=== PATIENT | male | born 1960 | race Caucasian/White ===

== ENCOUNTER 2018-11-09 14:40 | Observation (INO) | payer BC, OTHER ==
[2018-11-09] MEDS ORDERED: NORMAL SALINE 1000 ML 1,000 ML IV PRN (14:51)
[2018-11-09 15:50] LABS: ALANINE AMINOTRANSFERASE 30 U/L (21-72); ALBUMIN 4.6 g/dL (3.5-5.0); ALKALINE PHOSPHATASE 74 U/L (38-126); ANION GAP 14 (5-19); ASPARTATE AMINO TRANSFERASE 20 U/L (17-59); BILIRUBIN,DIRECT 0.3 mg/dL (0.0-0.4); BILIRUBIN,TOTAL 1.3 mg/dL (0.2-1.3); BLOOD UREA NITROGEN 17 mg/dL (7-20); CALCIUM 10.7 mg/dL (8.4-10.2); CARBON DIOXIDE 26 mmol/L (22-30); CHLORIDE 103 mmol/L (98-107); CREATINE KINASE 116 U/L (55-170); GLUCOSE 108 mg/dL (75-110); POTASSIUM 4.4 mmol/L (3.6-5.0); TOTAL PROTEIN 7.8 g/dL (6.3-8.2)
[2018-11-09 15:56] LABS: HEMATOCRIT 47.9 % (37.9-51.0); MEAN CORPUSCULAR HEMOGLOBIN 32.2 pg (27.0-33.4); MEAN CORPUSCULAR HGB CONC 35.5 g/dL (32.0-36.0); MEAN CORPUSCULAR VOLUME 91 fl (80-97); PLATELET COUNT 268 10^3/uL (150-450); RED BLOOD COUNT 5.28 10^6/uL (4.35-5.55); RED CELL DISTRIBUTION WIDTH 13.3 % (11.5-14.0); WHITE BLOOD COUNT 12.8 10^3/uL (4.0-10.5)
[2018-11-09 16:02] LABS: CREATINE KINASE MB 1.41 ng/mL (<4.55)
[2018-11-09 16:05] LABS: TROPONIN I < 0.012 ng/mL
--- NOTE | 2018-11-09 16:08 | EKG REPORT ---
SEVERITY:- ABNORMAL ECG - SINUS RHYTHM PROBABLE LEFT ATRIAL ABNORMALITY RIGHT BUNDLE BRANCH BLOCK +LPFB : Confirmed by: Av Alfred MD 09-Nov-2018 16:07:43
[2018-11-09 16:20] LABS: ABSOLUTE LYMPHOCYTES# (MANUAL) 0.4 10^3/uL (0.5-4.7); ABSOLUTE MONOCYTES # (MANUAL) 0.3 10^3/uL (0.1-1.4); ABSOLUTE NEUTROPHILS# (MANUAL) 12.2 10^3/uL (1.7-8.2); BASOPHILS % (MANUAL) 0 % (0-2); EOSINOPHILS % (MANUAL) 0 % (0-6); LYMPHOCYTES % (MANUAL) 3 % (13-45); MONOCYTES % (MANUAL) 2 % (3-13); PLATELET CLUMPS PRESENT; PLATELET COMMENT ADEQUATE; RBC MORPHOLOGY COMMENT NORMO-CYTIC/CHROMIC; SEGMENTED NEUTROPHILS % (MAN) 95 % (42-78); TOTAL CELLS COUNTED 100
[2018-11-09] MEDS ORDERED: NORMAL SALINE 1000 ML 1,000 ML IV ONE ×2 (16:20→17:31)
[2018-11-09] MEDS ORDERED: ONDANSETRON HCL INJ/PF 4 MG/2 ML SDV IV ONE (16:26)
[2018-11-09] MEDS ORDERED: KETOROLAC TROMETHAMINE INJ/PF 30 MG/1 ML SDV IV ONE (16:44)
[2018-11-09] MEDS ORDERED: ACETAMINOPHEN 325 MG TABLET PO ONE (16:44)
--- NOTE | 2018-11-09 17:00 | ER Document Report ---
Entered by LOGAN HARDIN SCRIBE 11/09/18 1607 Acting as scribe for:JULIANNE MARTINEZ MD ED General - General Chief Complaint: Nausea/Vomiting Stated Complaint: DIZZY Time Seen by Provider: 11/09/18 15:45 Mode of Arrival: Ambulatory Information source: Patient Notes: Patient is a 58 year old male presents to the emergency department complaining of nausea, vomiting, diarrhea and cramps onset last night. Patient states he believes he is dehydrated and is suffering from heat exhaustion due to having similar symptoms previously. Patient states he was working in the heat all day yesterday and began to have multiple abdominal cramps, described as "charley horse cramps" and diarrhea. Patient states he is also unable to hold any fluids down further stating anytime he attempts to drink water it comes back up within the next 5 minutes. He does admit to not drinking enough water yesterday. He states "I am zapped out of energy". He denies any current abdominal pain. TRAVEL OUTSIDE OF THE [place] IN LAST 30 DAYS: No - Related Data Allergies/Adverse Reactions: chocolate flavor Allergy (Verified 11/09/18 15:04) peanut Allergy (Verified 11/09/18 15:04) Penicillins Allergy (Verified 11/09/18 15:04) Past Medical History - General Information source: Patient - Social History Smoking Status: Former Smoker - occasionally smokes cigars Cigarette use (# per day): No Chew tobacco use (# tins/day): No Smoking Education Provided: No Frequency of alcohol use: Rare Drug Abuse: None Family History: Reviewed & Not Pertinent Patient has suicidal ideation: No Patient has homicidal ideation: No Past Surgical History: Reports: Hx Nose Surgery - 1984 - Immunizations Hx Diphtheria, Pertussis, Tetanus Vaccination: Yes Review of Systems - Review of Systems Constitutional: See HPI, Weakness EENT: No symptoms reported Cardiovascular: No symptoms reported Respiratory: No symptoms reported Gastrointestinal: See HPI, Diarrhea, Nausea, Vomiting, Poor fluid intake Genitourinary: No symptoms reported Male Genitourinary: No symptoms reported Musculoskeletal: See HPI Skin: No symptoms reported Hematologic/Lymphatic: No symptoms reported Neurological/Psychological: No symptoms reported -: Yes All other systems reviewed and negative Physical Exam - Vital signs Vitals: Temp Pulse Resp BP Pulse Ox 99.1 F 101 H 18 152/69 H 97 11/09/18 14:52 11/09/18 14:52 11/09/18 14:52 11/09/18 14:52 11/09/18 14:52 - Notes Notes: GENERAL: Alert, interacts well. No acute distress. HEAD: Normocephalic, atraumatic. Throat without erythema or edema. EYES: Pupils equal, round, and reactive to light. Extraocular movements intact. ENT: Oral mucosa moist, tongue midline. TMs are normal. NECK: Full range of motion. Supple. Trachea midline. LUNGS: Clear to auscultation bilaterally, no wheezes, rales, or rhonchi. No respiratory distress. HEART: Regular rate and rhythm. No murmurs, gallops, or rubs. ABDOMEN: Bowel sounds decreased. Abdomen is soft. Very tender in the left lower quadrant. EXTREMITIES: Moves all 4 extremities spontaneously. NEUROLOGICAL: Alert and oriented x3. Normal speech. PSYCH: Normal affect, normal mood. SKIN: Very warm, dry, normal turgor. No rashes or lesions noted. Course - Vital Signs Vital signs: Temp Pulse Resp BP Pulse Ox 102.1 F H 101 H 16 114/68 97 11/09/18 16:40 11/09/18 14:52 11/09/18 15:00 11/09/18 15:01 11/09/18 15:00 - Laboratory Result Diagrams: 11/09/18 14:58 11/09/18 14:58 Laboratory results interpreted by me: 11/09/18 11/09/18 11/09/18 14:58 14:58 17:07 WBC 12.8 H Seg Neuts % (Manual) 95 H Lymphocytes % (Manual) 3 L Monocytes % (Manual) 2 L Abs Neuts (Manual) 12.2 H Abs Lymphs (Manual) 0.4 L Calcium 10.7 H Urine Blood SMALL H - Diagnostic Test Radiology reviewed: Image reviewed, Reports reviewed - CT scan of the abdomen and pelvis with IV contrast shows fluid-filled loops of proximal small bowel in the mid abdomen that are not obviously obstructed. Developing or partial small bowel obstruction is not entirely excluded. Consider follow-up CT or fluoroscopic small bowel follow-through. No specific findings to explain the left lower quadrant abdominal pain. - EKG Interpretation by Me EKG shows normal: Sinus rhythm, Sagle, Intervals, QRS Complexes, ST-T Waves Rate: Normal - 82 Rhythm: NSR Sagle/QRS: RBBB P Waves: LAE - Consults Dr. Peck Time consulted: 18:00 Consulted provider: will come to ER Discharge - Discharge Clinical Impression: Abdominal pain Qualifiers: Abdominal location: lower abdomen, unspecified Qualified Code(s): R10.30 - Lower abdominal pain, unspecified Nausea and vomiting Qualifiers: Vomiting type: unspecified Vomiting Intractability: non-intractable Qualified Code(s): R11.2 - Nausea with vomiting, unspecified Leukocytosis Qualifiers: Leukocytosis type: unspecified Qualified Code(s): D72.829 - Elevated white b lood cell count, unspecified Condition: Stable Disposition: ADMITTED INPATIENT Admitting Provider: Surgicalist Unit Admitted: Surgical Floor Scribe Attestation: 11/09/18 16:26 I personally performed the services described in the documentation, reviewed and edited the documentation which was dictated to the scribe in my presence, and it accurately records my words and actions. I personally performed the services described in the documentation, reviewed and edited the documentation which was dictated to the scribe in my presence, and it accurately records my words and actions.
[2018-11-09 17:25] LABS: APPEARANCE,URINE CLEAR; BILIRUBIN,URINE NEGATIVE (NEGATIVE); COLOR,URINE YELLOW; GLUCOSE, URINE NEGATIVE (NEGATIVE); KETONES,URINE NEGATIVE (NEGATIVE); LEUKOCYTE ESTERASE,URINE NEGATIVE (NEGATIVE); NITRITE,URINE NEGATIVE (NEGATIVE); PROTEIN,URINE NEGATIVE (NEGATIVE); URINE SPECIFIC GRAVITY 1.009; UROBILINOGEN,URINE NEGATIVE mg/dL (<2.0)
--- NOTE | 2018-11-09 17:38 | RADIOLOGY REPORT (SQ) ---
EXAM DESCRIPTION: CT ABD/PELVIS WITH IV ONLY COMPLETED DATE/TIME: 11/09/2018 5:22 pm REASON FOR STUDY: Fever, leukocytosis, LLQ abdominal pain COMPARISON: None. TECHNIQUE: CT scan of the abdomen and pelvis performed using helical scanning technique with dynamic intravenous contrast injection. No oral contrast. Images reviewed with lung, soft tissue, and bone windows. Reconstructed coronal and sagittal MPR images reviewed. Delayed images for evaluation of the urinary system also acquired. All images stored on PACS. All CT scanners at this facility use dose modulation, iterative reconstruction, and/or weight based d osing when appropriate to reduce radiation dose to as low as reasonably achievable (ALARA). [facility]: Dose Right [facility]: CareDose [facility]: Dose Right [facility]: Teradose 4D [facility]: ScreenMedix CONTRAST TYPE AND DOSE: contrast/concentration: Isovue 350.00 mg/ml; Total Contrast Delivered: 100.0 ml; Total Saline Delivered: 72.0 ml RENAL FUNCTION: GFR > 60. RADIATION DOSE: CT Rad equipment meets quality standard of care and radiation dose reduction techniq ues were employed. CTDIvol: 10.5 - 14.8 mGy. DLP: 1506 mGy-cm.. LIMITATIONS: None. FINDINGS: LOWER CHEST: Bandlike scarring or atelectasis of the bilateral lung bases. LIVER: Normal size. No masses. No dilated ducts. SPLEEN: Normal size. No focal lesions. PANCREAS: No masses. No significant calcifications. No adjacent inflammation or peripancreatic fluid collections. Pancreatic duct not dilated. GALLBLADDER: No identified stones by CT criteria. No inflammatory changes to suggest cholecystitis. ADRENAL GLANDS: No significant masses or asymmetry. RIGHT KIDNEY AND URETER: No solid masses. No significant calcifications. No hydronephrosis or hyd roureter. LEFT KIDNEY AND URETER: No solid masses. No significant calcifications. No hydronephrosis or hydr oureter. AORTA AND VESSELS: No aneurysm. No dissection. Renal arteries, SMA, celiac without stenosis. RETROPERITONEUM: No retroperitoneal adenopathy, hemorrhage or masses. BOWEL AND PERITONEAL CAVITY: There are fluid-filled, not obviously obstructed loops of proximal small bowel in the mid abdomen, maximum caliber 3 cm. No masses or inflammatory changes. No free fluid or peritoneal masses. APPENDIX: Normal. PELVIS: No mass. No free fluid. Normal bladder. ABDOMINAL WALL: No masses. No hernias. BONES: No significant or acute findings. OTHER: No other significant finding. IMPRESSION: There are fluid-filled, not obviously obstructed loops of proximal small bowel in the mi d abdomen, maximum caliber 3 cm. Developing or partial small bowel obstruction is not entirely exclu ded in the setting of abdominal pain. Consider follow-up CT or fluoroscopic small bowel follow-throu gh as indicated by clinical suspicion. There are no specific findings to explain left lower quadrant pain. TECHNICAL DOCUMENTATION: JOB ID: [id number] Quality ID # [id number]: Final reports with documentation of one or more dose reduction techniques (e.g., Au tomated exposure control, adjustment of the mA and/or kV according to patient size, use of iterative reconstruction technique) 2010 [employer] All Rights Reserved Reading location - IP/workstation name: [email or web address]
--- NOTE | 2018-11-09 20:23 | PDOC H&P ---
History of Present Illness Admission Date/PCP: 11/09/18 18:07 Patient complains of: abdominal pains History of Present Illness: ZAHIDA MENESES is a 58 year old male who work under the heat yesterday. C/O abdominal cramps with diarrhea. He can drink but after a few minutes he would throw up. Patient went to ED today feeling dry and weak with LLQ pains Ct scan of abd in ED showed dilated small bowel but no definite obstruction. He claims he has bm everyday at 8-9am like clockwork. Social History Smoking Status: Former Smoker - occasionally smokes cigars Family History Family History: Reviewed & Not Pertinent Parental Family History Reviewed: Yes Children Family History Reviewed: No Sibling(s) Family History Reviewed.: No Medication/Allergy Home Medications: Indomethacin [Indocin 50 Mg Capsule] 50 mg PO TID #30 capsule 06/27/14 Allergies/Adverse Reactions: chocolate flavor Allergy (Verified 11/09/18 15:04) peanut Allergy (Verified 11/09/18 15:04) Penicillins Allergy (Verified 11/09/18 15:04) Review of Systems Constitutional: PRESENT: as per HPI, other - no fever/chills Eyes: PRESENT: other - no visual/hearing changes Cardiovascular: PRESENT: other - no chest pains/cough Gastrointestinal: PRESENT: abdominal pain, nausea, vomiting Genitourinary: PRESENT: other - no dysuria Physical Exam Vital Signs: Temp Pulse Resp BP Pulse Ox 99.5 F 84 18 116/73 98 11/09/18 19:53 11/09/18 19:53 11/09/18 19:53 11/09/18 19:53 11/09/18 19:53 Intake & Output 11/08/18 11/09/18 11/10/18 06:59 06:59 06:59 Intake Total 3000 Balance 3000 Weight 92.986 kg General appearance: PRESENT: mild distress Head exam: PRESENT: atraumatic Eye exam: PRESENT: conjunctiva pink Mouth exam: PRESENT: dry mucosa Neck exam: PRESENT: full ROM Respiratory exam: PRESENT: clear to auscultation joe Cardiovascular exam: PRESENT: RRR Pulses: PRESENT: normal radial pulses Vascular exam: PRESENT: normal capillary refill GI/Abdominal exam: PRESENT: soft - non tender Rectal exam: PRESENT: deferred Musculoskeletal exam: PRESENT: ambulatory Neurological exam: PRESENT: alert, oriented to person, oriented to place, oriented to time, oriented to situation Psychiatric exam: PRESENT: appropriate affect Skin exam: PRESENT: normal color, warm Results Laboratory Results: 11/09/18 14:58 11/09/18 14:58 11/09/18 11/09/18 11/09/18 14:58 14:58 14:58 WBC 12.8 H RBC 5.28 Hgb 17.0 Hct 47.9 MCV 91 MCH 32.2 MCHC 35.5 RDW 13.3 Plt Count 268 Seg Neutrophils % Not Reportable Lymphocytes % Not Reportable Monocytes % Not Reportable Eosinophils % Not Reportable Basophils % Not Reportable Absolute Neutrophils Not Reportable Absolute Lymphocytes Not Reportable Absolute Monocytes Not Reportable Absolute Eosinophils Not Reportable Absolute Basophils Not Reportable Sodium 143.0 Potassium 4.4 Chloride 103 Carbon Dioxide 26 Anion Gap 14 BUN 17 Creatinine 1.25 Est GFR ( Amer) > 60 Est GFR (Non-Af Amer) > 60 Glucose 108 Calcium 10.7 H Magnesium 1.7 Total Bilirubin 1.3 AST 20 ALT 30 Alkaline Phosphatase 74 Total Protein 7.8 Albumin 4.6 Urine Color Urine Appearance Urine pH Ur Specific [place] Urine Protein Urine Glucose (UA) Urine Ketones Urine Blood Urine Nitrite Ur Leukocyte Esterase Urine WBC (Auto) Urine RBC (Auto) 11/09/18 17:07 WBC RBC Hgb Hct MCV MCH MCHC RDW Plt Count Seg Neutrophils % Lymphocytes % Monocytes % Eosinophils % Basophils % Absolute Neutrophils Absolute Lymphocytes Absolute Monocytes Absolute Eosinophils Absolute Basophils Sodium Potassium Chloride Carbon Dioxide Anion Gap BUN Creatinine Est GFR ( Amer) Est GFR (Non-Af Amer) Glucose Calcium Magnesium Total Bilirubin AST ALT Alkaline Phosphatase Total Protein Albumin Urine Color YELLOW Urine Appearance CLEAR Urine pH 6.0 Ur Specific [place] 1.009 Urine Protein NEGATIVE Urine Glucose (UA) NEGATIVE Urine Ketones NEGATIVE Urine Blood SMALL H Urine Nitrite NEGATIVE Ur Leukocyte Esterase NEGATIVE Urine WBC (Auto) 2 Urine RBC (Auto) 0 11/09/18 11/09/18 14:58 14:58 Creatine Kinase 116 CK-MB (CK-2) 1.41 Troponin I < 0.012 Impressions: Abdomen/Pelvis CT 11/09/18 16:50 IMPRESSION: There are fluid-filled, not obviously obstructed loops of proximal small bowel in the mid abdomen, maximum caliber 3 cm. Developing or partial small bowel obstruction is not entirely excluded in the setting of abdominal pain. Consider follow-up CT or fluoroscopic small bowel follow-through as indicated by clinical suspicion. There are no specific findings to explain left lower quadrant pain. Assessment & Plan - Diagnosis (1) Abdominal pain Qualifiers: Abdominal location: lower abdomen, unspecified Qualified Code(s): R10.30 - Lower abdominal pain, unspecified Is this a current diagnosis for this admission?: Yes (2) Leukocytosis Qualifiers: Leukocytosis type: unspecified Qualified Code(s): D72.829 - Elevated white blood cell count, unspecified Is this a current diagnosis for this admission?: Yes (3) Nausea and vomiting Qualifiers: Vomiting type: unspecified Vomiting Intractability: non-intractable Qualified Code(s): R11.2 - Nausea with vomiting, unspecified Is this a current diagnosis for this admission?: Yes - Time Time Spent: 30 to 50 Minutes - Inpatient Certification Medical Necessity: Need For IV Fluids, Risk of Complication if Not Cared For in Hospital - Plan Summary Plan Summary: Will keep NPO Hold off antibiotics and repeat CBC in am Hydrate Possible SBFT in am
[2018-11-09] MEDS: NORMAL SALINE 1000 ML 1,000 ML IV PRN (21:25)
[2018-11-10] MEDS: NORMAL SALINE 1000 ML 1,000 ML IV PRN ×2 (02:37→07:55)
[2018-11-10] MEDS ORDERED: PSEUDOEPHEDRINE HCL 30 MG TABLET PO ONE (03:00)
[2018-11-10 06:07] LABS: ABSOLUTE LYMPHOCYTES (AUTO) 0.9 10^3/uL (0.5-4.7); ABSOLUTE MONOCYTES (AUTO) 0.5 10^3/uL (0.1-1.4); ABSOLUTE NEUT (AUTO) 4.6 10^3/uL (1.7-8.2); BASOPHILS % (AUTO) 0.2 % (0-2); EOSINOPHILS % (AUTO) 0.7 % (0-6); HEMATOCRIT 38.8 % (37.9-51.0); LYMPHOCYTES % (AUTO) 14.7 % (13-45); MEAN CORPUSCULAR HEMOGLOBIN 32.4 pg (27.0-33.4); MEAN CORPUSCULAR HGB CONC 35.9 g/dL (32.0-36.0); MEAN CORPUSCULAR VOLUME 90 fl (80-97); MONOCYTES % (AUTO) 7.7 % (3-13); PLATELET COUNT 201 10^3/uL (150-450); RED CELL DISTRIBUTION WIDTH 13.2 % (11.5-14.0); SEGMENTED NEUTROPHILS % (AUTO) 76.7 % (42-78); TOTAL CELLS COUNTED % (AUTO) 100 %
[2018-11-10 06:23] LABS: ALANINE AMINOTRANSFERASE 25 U/L (21-72); ALKALINE PHOSPHATASE 49 U/L (38-126); ANION GAP 6 (5-19); ASPARTATE AMINO TRANSFERASE 13 U/L (17-59); BILIRUBIN,DIRECT 0.2 mg/dL (0.0-0.4); BILIRUBIN,TOTAL 1.1 mg/dL (0.2-1.3); BLOOD UREA NITROGEN 14 mg/dL (7-20); CARBON DIOXIDE 25 mmol/L (22-30); CHLORIDE 110 mmol/L (98-107); GLUCOSE 89 mg/dL (75-110); HEMOGLOBIN 13.9 g/dL (13.5-17.0); POTASSIUM 3.8 mmol/L (3.6-5.0); SODIUM 140.8 mmol/L (137-145); TOTAL PROTEIN 5.4 g/dL (6.3-8.2)
[2018-11-10] MEDS ORDERED: DEXTROSE 40% GEL 15 GM TUBE PO PRN ×2 (08:04)
[2018-11-10] MEDS ORDERED: DEXTROSE 50%-WATER 25 GM/50 ML DISP.SYRIN IV PRN ×2 (08:04)
[2018-11-10] MEDS ORDERED: GLUCAGON,HUMAN RECOMB 1 MG INJ SUBCUT PRN (08:04)
[2018-11-10 12:20] VITALS: BP 128/72
--- NOTE | 2018-11-10 12:47 | PDOC PROGRESS REPORT ---
Subjective Progress Note for:: 11/10/18 Subjective:: Patient feels fine, no some vomiting, no abdominal pain. Reason For Visit: ABDOMINAL PAIN, NAUSEA AND VOMITING, LEUKOCYTOSIS Physical Exam Vital Signs: Temp Pulse Resp BP Pulse Ox 97.8 F 86 20 128/72 H 95 11/10/18 12:03 11/10/18 12:03 11/10/18 12:03 11/10/18 12:03 11/10/18 12:03 Intake & Output 11/09/18 11/10/18 11/11/18 06:59 06:59 06:59 Intake Total 4000 1000 Balance 4000 1000 Weight 96.9 kg General appearance: PRESENT: no acute distress GI/Abdominal exam: PRESENT: other - Abdomen is completely benign, soft, nontender, no peritoneal signs no rigidity Results Laboratory Results: 11/10/18 05:23 11/10/18 05:23 11/09/18 11/09/18 11/09/18 14:58 14:58 14:58 WBC 12.8 H RBC 5.28 Hgb 17.0 Hct 47.9 MCV 91 MCH 32.2 MCHC 35.5 RDW 13.3 Plt Count 268 Seg Neutrophils % Not Reportable Lymphocytes % Not Reportable Monocytes % Not Reportable Eosinophils % Not Reportable Basophils % Not Reportable Absolute Neutrophils Not Reportable Absolute Lymphocytes Not Reportable Absolute Monocytes Not Reportable Absolute Eosinophils Not Reportable Absolute Basophils Not Reportable Sodium 143.0 Potassium 4.4 Chloride 103 Carbon Dioxide 26 Anion Gap 14 BUN 17 Creatinine 1.25 Est GFR ( Amer) > 60 Est GFR (Non-Af Amer) > 60 Glucose 108 Calcium 10.7 H Magnesium 1.7 Total Bilirubin 1.3 AST 20 ALT 30 Alkaline Phosphatase 74 Total Protein 7.8 Albumin 4.6 Urine Color Urine Appearance Urine pH Ur Specific [place] Urine Protein Urine Glucose (UA) Urine Ketones Urine Blood Urine Nitrite Ur Leukocyte Esterase Urine WBC (Auto) Urine RBC (Auto) 11/09/18 11/10/18 11/10/18 17:07 05:23 05:23 WBC 6.0 RBC 4.30 L Hgb 13.9 D Hct 38.8 MCV 90 MCH 32.4 MCHC 35.9 RDW 13.2 Plt Count 201 Seg Neutrophils % 76.7 Lymphocytes % 14.7 Monocytes % 7.7 Eosinophils % 0.7 Basophils % 0.2 Absolute Neutrophils 4.6 Absolute Lymphocytes 0.9 Absolute Monocytes 0.5 Absolute Eosinophils 0.0 Absolute Basophils 0.0 Sodium 140.8 Potassium 3.8 Chloride 110 H Carbon Dioxide 25 Anion Gap 6 BUN 14 Creatinine 1.19 Est GFR ( Amer) > 60 Est GFR (Non-Af Amer) > 60 Glucose 89 Calcium 9.0 Magnesium Total Bilirubin 1.1 AST 13 L ALT 25 Alkaline Phosphatase 49 Total Protein 5.4 L Albumin 3.0 L Urine Color YELLOW Urine Appearance CLEAR Urine pH 6.0 Ur Specific [place] 1.009 Urine Protein NEGATIVE Urine Glucose (UA) NEGATIVE Urine Ketones NEGATIVE Urine Blood SMALL H Urine Nitrite NEGATIVE Ur Leukocyte Esterase NEGATIVE Urine WBC (Auto) 2 Urine RBC (Auto) 0 11/09/18 11/09/18 14:58 14:58 Creatine Kinase 116 CK-MB (CK-2) 1.41 Troponin I < 0.012 Impressions: Abdomen/Pelvis CT 11/09/18 16:50 IMPRESSION: There are fluid-filled, not obviously obstructed loops of proximal small bowel in the mid abdomen, maximum caliber 3 cm. Developing or partial small bowel obstruction is not entirely excluded in the setting of abdominal pain. Consider follow-up CT or fluoroscopic small bowel follow-through as indicated by clinical suspicion. There are no specific findings to explain left lower quadrant pain. Assessment & Plan - Diagnosis (1) Abdominal pain Qualifiers: Abdominal location: lower abdomen, unspecified Qualified Code(s): R10.30 - Lower abdominal pain, unspecified Is this a current diagnosis for this admission?: Yes Plan: Impression: Clinically improved; no nausea vomiting. White blood cell count normal. Recommendations: 1. We will start on a diet, advance and if tolerated well anticipate discharge home later
--- NOTE | 2018-11-10 17:14 | DISCHARGE SUMMARY E ---
Discharge Summary NAME: ZAHIDA MENESES : 1960 AGE: 58Y ADMITTED: 11/09/2018 DISCHARGED: 11/10/2018 REASON FOR ADMISSION: Abdominal pain, nausea and vomiting. SUMMARY OF HOSPITALIZATION: The patient is a 58-year-old white male with acute onset of abdominal pain, nausea and vomiting, fever, and leukocytosis. He was seen in the emergency department, where he was found to have left lower quadrant abdominal tenderness. He underwent CT scan of the abdomen and pelvis without oral contrast, which suggested a possible small bowel obstruction. He was admitted for hydration. The patient was admitted to the surgical service, where he was kept NPO on IV fluids. Over the next 24 hours, he clinically improved and continued to have a benign abdomen. The following day, he was started on a diet and this was advanced and tolerated well. By the afternoon of the second hospital day, he was felt to have received maximum benefit of hospitalization and was discharged home. FINAL DIAGNOSIS: GASTROENTERITIS. DISPOSITION: The patient was discharged home to the care of his family. Follow up with [facility] and/or the hospital at [facility] on a PRN basis; I did give the patient a copy of my business card and suggested he follow up with me to schedule a screening colonoscopy as he is 7 years overdue. DICTATING PHYSICIAN: GIRISH POTTER M.D. [id number] PHY#: [id number] ID: [id number] JOB#: [id number] ACCT: [id number] cc:Isidro HAYNES M.D. >
== END 2018-11-10 17:49 | disposition home or self-care (01) ==
LOC: ER 14:40 → INTOOBSV 18:07 → EH 18:07 → 2N 19:49
PROVIDERS: ADMIT Surgery; ATTEND Surgery
DX: K52.9 Noninfective gastroenteritis and colitis, unspecified (principal); R53.1 Weakness; Z87.891 Personal history of nicotine dependence
CPT/HCPCS: 93005; 99285; 96361; 96374; 96375; 36415 ×2; 87040; 82553; 82550; 83735; 85025 ×2; 80053 ×2; 81001; 84484; 74177; 93010; G0378 ×2; J1885; J2405; J7030 ×2